=== PATIENT | male | born 1990 | race Hispanic/Latino ===

== ENCOUNTER 2016-07-23 17:19 | Emergency (ER) | payer MEDICAID, OTHER ==
[~2016-07-23] VITALS: Ht 182.9 cm; Wt 72.7 kg
[~2016-07-23 17:19] MED LIST: NOMED
[2016-07-23 17:38] VITALS: BP 114/68; RESP 18; O2SAT 98
--- NOTE | 2016-07-23 19:15 | ED.REPORT ---
HPI-URI / Cough / Cold Date of Service Jul 23, 2016 ED Provider: Brien Vale PA-C 1 is an otherwise healthy 26-year-old male who presents with a chief complaint of sore throat. Reports a 3 to four-day history of sore throat associated with rhinorrhea, nasal congestion, headache, cough, fever, chills, myalgia, vomiting without blood, diarrhea without blood, epigastric abdominal pain. He denies eye or ear symptoms, chest pain, palpitations. Denies history of asthma or lung disease. He has not received a flu shot Nursing Notes Stated Complaint: HEAVY BREATHING, SORE THROAT Chief Complaint: ENT & Mouth Nursing Notes Reviewed: Yes Allergies: Coded Allergies: No Known Allergies (Verified Allergy, Mild, 04/02/08) Miscellaneous Medications No Historical Medication (No Historical Medication) Ea General Time Seen by MD: 18:34 Chief Complaint Sore throat Past Medical History Past Medical History Notes: Denies Review of Systems Review of Systems Note: Negative unless stated otherwise in history of present illness Physical Exam General: Mildly ill appearing, well developed, well nourished, mild distress. Head: Atraumatic, normocephalic. No mastoid tenderness. Eyes: No scleral icterus or injection. No discharge. PERRL. Vision grossly intact. Ears: Pinna and tragus nontender with manipulation. External auditory canal patent, atraumatic and without discharge. Tympanic membrane gaston, shiny and translucent without fluid, bulging, retraction or perforation. Hearing grossly intact. Nose: Symmetrical, nares patent without discharge. No frontal or maxillary sinus tenderness. Mouth/pharynx: normal dentition, mucus membranes moist. Tonsils 2+ and symmetrical, uvula midline. Pharynx injected with cobblestoning but no discharge. Voice clear. Neck: Mild anterior lymphadenopathy. Trachea midline. Respiratory: Regular rate and rhythm. Breath sounds present, clear to auscultation and equal bilaterally. Cardiovascular: Regular rate and rhythm, without murmur, gallop or rub. No pedal edema. Gastrointestinal: Abdomen flat and non-tender without guarding or rebound. Bowel sounds normoactive. Skin: Warm and dry. Neurological: Grossly nonfocal. Psychological: Alert and oriented. Speech appropriate, linear and logical. Behavior appropriate. Initial Vital Signs Vital Signs (First) Date Time Temp Pulse Resp B/P Pulse Ox O2 Delivery O2 Flow Rate FiO2 07/23/16 17:38 37.0 69 18 114/68 98 Initial VS: Reviewed, Vital signs normal Re-Eval/Medical Decision Med Decision/Clinical Course Otherwise healthy 26-year-old male presents with 3-4 a history of sore throat associated with rhinorrhea and headache, cough, fever, myalgia. He has not received a flu shot. Physical is reassuring with clear lung sounds, throat injected without exudate. Strep test negative. This appears to be influenza. Offered testing for the flu, but advised that it would not change the course of treatment due to the duration of symptoms and the patient declined. Diagnosis upper respiratory tract infection versus strep, pneumonia, mononucleosis. Patient is amenable to discharge with instructions for [id number] analgesia, primary care follow-up, return precautions Discharge & Departure Impression: Primary Impression: Upper respiratory infection URI type: unspecified viral URI Qualified Code: J06.9 - Acute upper respiratory infection, unspecified Disposition: Home Discharge Condition All VS Reviewed: Yes Condition: Stable Patient Instructions: Upper Respiratory Infection (ED) Additional Instructions: Evaluation in the emergency department for sore throat. History and physical are reassuring that this is unlikely to be a condition such as strep throat or pneumonia that requires antibiotic treatment. I believe that you have a viral upper respiratory infection. I believe there is a very good chance that it is the flu, however we chose not to test for the flu because at this point I would not change our treatment. Rest, drink small amounts of fluids throughout the day, and eat small amounts of food as tolerated. The treatment is largely symptomatic: I typically recommend doxylamine/ dextromethorphan (brand name: Robitussin Extra Strength Nighttime Cough DM) for use at night, which will help you sleep and reduce cough. If your pharmacy does not have this, ask your pharmacist to recommend an alternative. Pain and fever is best treated with 400 mg of ibuprofen (Advil, Motrin) every 6 hours, or 1000 mg of acetaminophen (Tylenol) every 6 hours. These drugs can be taken at the same time for more severe pain. Pseudoephedrine (Sudafed) taken in the morning will help relieve nasal congestion. In many pharmacies this is kept behind the counter, so ask the pharmacist. Cepacol lozenges are very helpful for sore throat. Follow-up with your primary care provider if your symptoms have not significantly improved in a week. Remember that sometimes a cough can take up to a month to completely resolve. Return to the emergency department for new or worsening symptoms including chest pain, shortness of breath, difficulty breathing or speaking. Referrals: [facility] (PCP) EDSupervising Provider for APC: Yonas Montero MD, Seth PA-C Jul 23, 2016 19:15
== END 2016-07-23 19:30 | disposition home or self-care (01) ==
LOC: SED 17:19
DX: J06.9 Acute upper respiratory infection, unspecified (principal); R51 Headache; R05 Cough; R50.9 Fever, unspecified; M79.1 Myalgia; R11.10 Vomiting, unspecified; R19.7 Diarrhea, unspecified; R10.13 Epigastric pain; J34.89 Other specified disorders of nose and nasal sinuses